=== PATIENT | female | born 1945 | race Caucasian/White ===

== ENCOUNTER → 2016-10-27 17:25 | Outpatient (CLI) | payer MEDICARE, OTHER ==
[2013-10-29 12:43] VITALS: BMI 24.0
[~2016-10-27 17:25] MED LIST: CHROMIUM PICO200 MC1 PO; GLUCOSAMINE & C1 CAP PO; HYDROCHLOROTH12.5 M1 PO; NORCO 10/325 TA1 TA1 PO; PRILOSEC20 MG PO; VITAMIN C250 MG
== END | disposition home or self-care (01) ==
LOC: D.MAMMO 15:00
DX: Z12.31 Encounter for screening mammogram for malignant neoplasm of breast (principal)

== ENCOUNTER 2018-04-17 12:35 | Outpatient (CLI) | payer MEDICARE, OTHER ==
[2013-10-29 12:43] VITALS: BMI 24.0
== END 2018-04-17 23:00 ==
LOC: D.CT 12:35
DX: R26.9 Unspecified abnormalities of gait and mobility (principal)